=== PATIENT | female | born 2000 | race Caucasian/White ===

== ENCOUNTER 2021-08-23 20:15 | Inpatient (IN) | payer OTHER ==
[~2021-08-23] VITALS: Ht 160 cm; Wt 59.0 kg
[2021-08-23] MEDS ORDERED: NALBUPHINE HCL 10 MG/ML AMP IVP PRN (22:45)
[2021-08-23] MEDS ORDERED: DINOPROSTONE 10 MG SUPP VG ONE (22:45)
[2021-08-23] MEDS ORDERED: TERBUTALINE SULFATE 1 MG/ML VIAL SUBCUT ONE (22:45)
[2021-08-23] MEDS ORDERED: NALBUPHINE HCL 10 MG/ML AMP IM PRN (22:45)
[2021-08-23] MEDS ORDERED: OXYTOCIN/0.9 % SODIUM CHLORIDE 1,000 ML IV SCH (22:45)
[2021-08-23 23:22] VITALS: BP_SYST 123
[2021-08-24 00:33] LABS: BASOPHILS # (AUTO) 0.1 K/uL (0.0-0.2); BASOPHILS % (AUTO) 0.6 % (0.0-2.0); EOSINOPHILS % (AUTO) 0.3 % (0.0-4.0); HEMATOCRIT 30.4 % (36-48); HEMOGLOBIN 10.2 g/dL (12.0-16.0); LYMPHOCYTES % (AUTO) 23.1 % (20.5-51.5); MEAN CORPUSCULAR HEMOGLOBIN 30 pg (27-31); MEAN CORPUSCULAR HGB CONC 34 % (32-36); MEAN CORPUSCULAR VOLUME 88 fL (79.0-98.0); MONOCYTES # (AUTO) 0.5 K/uL (0.0-1.0); MONOCYTES % (AUTO) 5.6 % (1.7-9.3); NEUTROPHILS # (AUTO) 6.1 K/uL (1.8-7.7); NEUTROPHILS % (AUTO) 70.4 % (40.0-70.0); PLATELET COUNT (AUTO) 243 K/uL (130-430); RED BLOOD CELL COUNT(AUTO) 3.43 MIL/uL (4.2-6.2); RED CELL DISTRIBUTION WIDTH 13.9 % (9.0-15.0); WHITE BLOOD COUNT (AUTO) 8.6 K/uL (4.8-10.8)
[2021-08-24] MEDS: LR 1,000 ML IV SCH ×3 (01:12→23:30)
[2021-08-24] MEDS ORDERED: NALOXONE HCL 0.4 MG/ML AMP (NARCAN) IVP PRN (03:45)
[2021-08-24] MEDS: MORPHINE SULFATE 10 MG/ML VIAL IVP PRN ×2 (04:05→21:20)
[2021-08-24] MEDS ORDERED: AMPICILLIN SODIUM 2 GM in NS 100 ML IV ONE (19:30)
[2021-08-24] MEDS ORDERED: AMPICILLIN SODIUM 2 GM VIAL ONE (20:00)
[2021-08-24] MEDS ORDERED: ROPIVACAINE HCL/PF 0.2% 200 ML ONE (21:49)
[2021-08-24] MEDS ORDERED: fentaNYL CITRATE/PF 100 MCG/2 ML AMP ONE (21:49)
[2021-08-24] MEDS ORDERED: FENT2mCg/mL-ROPIVA0.2%/NS EPID 200 ML EP SCH (22:30)
[2021-08-24] MEDS ORDERED: LR 500 ML IV ONE (22:30)
[2021-08-24] MEDS ORDERED: AMPICILLIN SODIUM 1 GM in NS 50 ML IV SCH (23:30)
[2021-08-25] MEDS ORDERED: IBUPROFEN 800 MG TABLET PO SCH (06:15)
[2021-08-25] MEDS ORDERED: WITCH HAZEL LEAF 1 MED.PAD MED.PAD TP PRN (07:30)
[2021-08-25] MEDS ORDERED: ANUSOL 1 EA SUPP.RECT (PREPARATION H) RC PRN (07:30)
[2021-08-25] MEDS ORDERED: LANOLIN 7 GM OINT. TP PRN (07:30)
[2021-08-25] MEDS ORDERED: DERMOPLAST SPRAY TP PRN (07:30)
[2021-08-25] MEDS ORDERED: OXYTOCIN/0.9 % SODIUM CHLORIDE 1,000 ML IV SCH (07:30)
[2021-08-25] MEDS ORDERED: OXYTOCIN/0.9 % SODIUM CHLORIDE 1,000 ML IV ONE (07:30)
[2021-08-25] MEDS ORDERED: METHYLERGONOVINE MALEATE 0.2 MG TABLET PO PRN (07:30)
[2021-08-25] MEDS ORDERED: HYDROcodone/ACETAMIN 5-325 MG TAB (NORCO/ VICODIN) PO PRN ×2 (07:30→08:30)
[2021-08-25] MEDS ORDERED: HYDROCORTISONE 0.5% CREAM 28.4 GM CREAM.GM. TP PRN (07:30)
[2021-08-25] MEDS ORDERED: NALOXONE HCL 0.4 MG/ML AMP (NARCAN) IVP PRN (07:30)
[2021-08-25] MEDS ORDERED: OXYCODONE/ACETAMINOPHEN 5-325 TABLET PO PRN ×2 (08:30)
[2021-08-25] MEDS: IBUPROFEN 600 MG TABLET PO SCH ×2 (13:08→18:10)
[2021-08-25] MEDS: DOCUSATE SODIUM 100 MG CAPSULE PO SCH (18:09)
[2021-08-25] MEDS: OXYCODONE/ACETAMINOPHEN 5-325 TABLET PO PRN ×2 (18:09→23:05)
[2021-08-25] MEDS ORDERED: SENNOSIDES/DOCUSATE SODIUM 1 TAB TABLET(SENOKOT-S) PO SCH (21:00)
[2021-08-25] MEDS ORDERED: TEMAZEPAM 15 MG CAPSULE PO PRN (21:00)
[2021-08-26] MEDS: IBUPROFEN 600 MG TABLET PO SCH ×3 (00:04→19:56)
[2021-08-26] MEDS: OXYCODONE/ACETAMINOPHEN 5-325 TABLET PO PRN ×3 (03:26→19:57)
[2021-08-26 06:47] LABS: BASOPHILS # (AUTO) 0.1 K/uL (0.0-0.2); BASOPHILS % (AUTO) 0.8 % (0.0-2.0); EOSINOPHILS # (AUTO) 0.2 K/uL (0.0-0.4); EOSINOPHILS % (AUTO) 1.7 % (0.0-4.0); HEMATOCRIT 23.9 % (36-48); LYMPHOCYTES # (AUTO) 2.7 K/uL (1.0-5.5); LYMPHOCYTES % (AUTO) 28.3 % (20.5-51.5); MEAN CORPUSCULAR HEMOGLOBIN 30 pg (27-31); MEAN CORPUSCULAR HGB CONC 33 % (32-36); MEAN CORPUSCULAR VOLUME 89 fL (79.0-98.0); MONOCYTES # (AUTO) 0.4 K/uL (0.0-1.0); MONOCYTES % (AUTO) 4.4 % (1.7-9.3); NEUTROPHILS # (AUTO) 6.3 K/uL (1.8-7.7); NEUTROPHILS % (AUTO) 64.8 % (40.0-70.0); PLATELET COUNT (AUTO) 203 K/uL (130-430); RED BLOOD CELL COUNT(AUTO) 2.67 MIL/uL (4.2-6.2); WHITE BLOOD COUNT (AUTO) 9.7 K/uL (4.8-10.8)
[2021-08-26] MEDS: DOCUSATE SODIUM 100 MG CAPSULE PO SCH (10:05)
[2021-08-26] MEDS ORDERED: FERROUS SULFATE 325 MG TABLET.DR PO ONE (12:30)
[2021-08-26] MEDS ORDERED: FERROUS SULFATE 325 MG TABLET.DR PO SCH (21:00)
== END 2021-08-26 21:00 | disposition home or self-care (01) | DRG 560 ==
LOC: SPU 22:18
PROVIDERS: ADMIT Obstetrics & Gynecology; ATTEND Obstetrics & Gynecology
PROC: 10E0XZZ Delivery of Products of Conception, External Approach (ICD-10-PCS; principal; 2021-08-25)
PROC: 3E0P7VZ Introduction of Hormone into Female Reproductive, Via Natural or Artificial Opening (ICD-10-PCS; 2021-08-25)
PROC: 3E0R3BZ Introduction of Anesthetic Agent into Spinal Canal, Percutaneous Approach (ICD-10-PCS; 2021-08-25)
PROC: 00HU33Z Insertion of Infusion Device into Spinal Canal, Percutaneous Approach (ICD-10-PCS; 2021-08-25)
PROC: 0HQ9XZZ Repair Perineum Skin, External Approach (ICD-10-PCS; 2021-08-25)
DX: O99.824 Streptococcus B carrier state complicating childbirth (principal); Z37.0 Single live birth; D62 Acute posthemorrhagic anemia; O70.0 First degree perineal laceration during delivery; Z3A.39 39 weeks gestation of pregnancy
CPT/HCPCS: 36415; 81002; 85025; 86592; 86886; 86900; 86901; 94760; J0290; J2270; J2590; J3010